=== PATIENT | male | born 1975 | race Caucasian/White ===

== ENCOUNTER 2017-11-20 07:05 | Emergency (ER) | payer BC ==
[2017-11-20] MEDS ORDERED: HYDROcodone/ACETAMINOPHEN 1 EACH TABLET PO ONE (07:42)
[2017-11-20] MEDS ORDERED: KETOROLAC TROMETHAMINE 60 MG/2 ML VIAL IM ONE ×2 (07:42→07:44)
[2017-11-20] MEDS ORDERED: HYDROcodone/ACETAMINOPHEN 1 EACH TABLET ONE (07:45)
[2017-11-20] MEDS ORDERED: IBUPROFEN 400 MG TABLET PO ONE (07:47)
[2017-11-20] MEDS ORDERED: IBUPROFEN 400 MG TABLET ONE (07:49)
--- NOTE | 2017-11-20 07:52 | ERNOTE ---
Back Pain ER HPI Date of Service: 11/20/17 Presenting Symptoms: injury/pain to back Time Seen by Provider: 11/20/17 07:35 Source: patient Exam Limitations: no limitations Immunizations: IMMUNIZATION HX History of Influenza Vaccine No Hx Pneumococcal Vaccination No Allergies/Adverse Reactions: Allergies No Known Allergies Allergy (Unverified 11/20/17 07:14) Home Medications: HOME MEDICATIONS HYDROcodone/ACETAMINOPHEN [[place] 5-325] 1 - 2 tab PO Q6H PRN #15 tab 11/20/17 [ Last Taken Unknown] Narrative: This is a 42-year-old male with a history of back problems. He did have an MRI done several years ago which showed he had some herniated disks which were causing degeneration of other discs. Patient was doing fine until Monday when he fell asleep in a recliner. He woke up saying that he was having severe pain in his back. This persisted. It's only okay when he lays on his belly or flat on his back. Any motion or movement seems to make it worse. He has some tingling in the anterior thighs bilaterally right greater than left. No loss of bowel or bladder function. No loss of muscular strength although flexion and movement at the hip is limited due to severe pain. Unfortunately the patient did drive himself to the ER today. Again the patient has no loss of muscular strength and the only sensation changes on the thighs bilaterally does not go past the knee. He is able to walk although appears uncomfortable. No fever chills urinary symptoms GI symptoms or any other complaints Review of Systems - Review of Systems Constitutional: Present: no symptoms reported EYE: Present: no symptoms reported ENT: Present: no symptoms reported Respiratory: Present: no symptoms reported Cardiology: Present: no symptoms reported Gastrointestinal/Abdominal: Present: no symptoms reported Genitourinary: Present: no symptoms reported Musculoskeletal: Present: See HPI, back pain Neurological: Present: See HPI, tingling Endocrine: Present: no symptoms reported Hematologic/Lymphatic: Present: no symptoms reported Psych: Present: no symptoms reported All Other Systems: All systems neg except as marked - Patient's Past Medical History Patient History - Medical: No pertinent hx Patient History - Cardiac/Respiratory: No pertinent hx Patient History - Cancer: No Hx of Cancer Patient History - Other: None - Social History Living Situations: home Abuse History: No History of abuse Psych History: No pertinent hx Smoking Status: Current every day smoker Alcohol Use: none Drug Use: none - Immunizations Hx Pneumococcal Vaccination: No History of Influenza Vaccine: No Physical Exam - Physical Exam General Appearance: Present: wd/wn, alert, other Head Exam: Present: normal inspection, no evidence of injury - the patient appears acutely uncomfortable Eye Exam: Normal inspection: bilateral, PERRL: bilateral, EOMI: bilateral Ears, Nose, Throat: Present: normal ENT inspection, normal pharynx Neck: Present: normal inspection, nontender Respiratory: Present: no respiratory distress, normal breath sounds, no accessory muscle use, lungs clear Cardiovascular/Chest: Present: regular rate, rhythm, no murmur, normal peripheral pulses Gastrointestinal/Abdominal: Present: normal bowel sounds, nontender, nondistended, soft, no organomegaly Back Exam: Present: normal inspection, no CVA tenderness, no vertebral tenderness, other - patient has severe limitation in range of motion especially flexion and bending to the right. Lateral flexion to the left is a bit better. He has no tenderness over the SI joints. No bony tenderness. No CVA tenderness Extremity Exam: Present: normal inspection, non-tender, normal range of motion, no edema Neurological Exam: Present: alert, oriented, normal mood/affect, no motor/ sensory deficits, other - reflexes are intact distal neurovascular is intact Skin Exam: Present: normal color, warm/dry Lymphatic Exam: Present: no adenopathy ED Progress - Vital Signs Patient's Vital Signs:: I have reviewed the patient's vital signs. Vital Signs: Vital Signs 11/20/17 11/20/17 07:09 07:43 Temperature 36.0 C L Pulse Rate 95 95 Respiratory 12 12 Rate Blood Pressure 143/75 124/85 O2 Sat by Pulse 98 98 Oximetry - Progress/Reassessment Chief Complaint: Back Pain Progress:: Unchanged Departure Clinical Impression: Back pain - Departure Disposition: Home self-care Condition: Good Instructions: Back Exercises, Back Pain, Adult Additional Instructions: As we have discussed, your back pain is only been going on for a couple of days. We have none of the red flags to indicate a possible sinister etiology. The only going on for a couple of days so there is no reason to perform MRI or other tests on U today. Most back pain gets better on its own within 2 weeks. I want you to take ibuprofen. Take 600 mg, that 3 tablets of [id number] ibuprofen, every 6 hours for at least 5 days. This will help with inflammation. Next For more severe pain you can take the prescribed hydrocodone. Absolutely no driving or operating machinery while taking this medicine. Call a family doctor and set up a follow-up appointment. Your over 40 so it's time to have a primary care doctor that he can follow-up with. Next If you develop fever, numbness which goes down past her knees, loss of control of muscles, loss of control of bladder or bowel or any new concerning symptoms and to return to the ER immediately Prescriptions: HYDROcodone/ACETAMINOPHEN [[place] 5-325] 1 - 2 tab PO Q6H PRN #15 tab PRN Reason: Pain
[2017-11-20 07:55] VITALS: BP 124/85
== END 2017-11-20 07:56 | disposition home or self-care (01) ==
LOC: ER 07:05
DX: M54.9 Dorsalgia, unspecified (principal); Z53.29 Procedure and treatment not carried out because of patient's decision for other reasons